=== PATIENT | male | born 1985 | race Caucasian/White ===

== ENCOUNTER 2018-07-18 08:37 | Emergency (ER) | payer OTHER ==
[~2018-07-18] VITALS: Ht 172.7 cm; Wt 68.0 kg
[2018-07-18] MEDS ORDERED: ADDERALL 10 MG10 MG PO (08:48)
[2018-07-18 08:58] LABS: ABSOLUTE NEUTROPHILS 3.8 thou/uL (1.4-8.2); BASOPHILS 0.7 % (0.0-2.0); EOSINOPHILS 3.2 % (0.0-3.0); HEMATOCRIT 45.9 % (42.0-52.0); HEMOGLOBIN 15.6 gm/dL (14.0-18.0); LYMPHOCYTES 37.6 % (24.0-44.0); MCHC 33.9 g/dL (28.0-37.0); MCV 88.6 fL (80.0-100.0); MONOCYTES 9.1 % (1.0-8.0); PLATELET COUNT 279 thou/uL (150-400); POLYS 49.4 % (36.0-66.0); RBC 5.19 mil/uL (4.50-6.00); RDW 13.3 % (10.5-14.5); WBC 7.7 thou/uL (4.0-11.0)
[2018-07-18 09:06] LABS: CALCIUM 9.8 mg/dL (8.5-10.1); CREATININE 0.9 mg/dL (0.7-1.3); POTASSIUM 3.9 mmol/L (3.5-5.1)
[2018-07-18 09:10] LABS: URINE BILIRUBIN NEGATIVE (Negative); URINE BLOOD TRACE (Negative); URINE CLARITY CLEAR; URINE COLOR YELLOW; URINE GLUCOSE-RANDOM* NEGATIVE (Negative); URINE KETONES NEGATIVE (Negative); URINE LEUKOCYTES-REFLEX NEGATIVE (Negative); URINE NITRITE-REFLEX NEGATIVE (Negative); URINE PROTEIN (DIPSTICK) NEGATIVE (Negative); URINE SPECIFIC GRAVITY <= 1.005 (1.005-1.035); URINE UROBILINOGEN 0.2 E.U./dl (0.2-1.0)
[2018-07-18 10:05] LABS: SQUAMOUS None Seen /LPF (0-3)
[2018-07-18 10:45] LABS: CASTS None Seen /LPF (None Seen)
[2018-07-18 10:47] LABS: CALCIUM OXALATE 0-3 Few /LPF (None Seen); URINE WBC-REFLEX 0-5 Rare /HPF (0-5)
[2018-07-18 10:48] LABS: BACTERIA-REFLEX None Seen /HPF (None Seen); URINE RBC 3-10 Few /HPF (0-2)
[2018-07-18] MEDS ORDERED: FLOMAX0.4 MG PO (11:48)
[2018-07-18] MEDS ORDERED: ZOFRAN ODT4 MG PO (11:48)
[2018-07-18] MEDS ORDERED: TORADOL 10 MG T10 MG PO (11:48)
[2018-07-18 12:14] VITALS: BP 125/88
== END 2018-07-18 12:14 | disposition home or self-care (01) ==
LOC: ER 08:37
PROVIDERS: Emergency Medicine
DX: N20.1 Calculus of ureter (principal); Z87.442 Personal history of urinary calculi

== ENCOUNTER 2018-09-29 13:11 | Emergency (ER) | payer OTHER ==
[~2018-09-29] VITALS: Ht 172.7 cm; Wt 68.0 kg
[~2018-09-29 13:11] MED LIST: ADDERALL 10 MG10 MG PO; FLOMAX0.4 MG PO; TORADOL 10 MG T10 MG PO; ZOFRAN ODT4 MG PO
[2018-09-29 13:30] LABS: URINE BILIRUBIN NEGATIVE (Negative); URINE BLOOD NEGATIVE (Negative); URINE CLARITY CLEAR; URINE COLOR YELLOW; URINE GLUCOSE-RANDOM* NEGATIVE (Negative); URINE KETONES NEGATIVE (Negative); URINE LEUKOCYTES-REFLEX NEGATIVE (Negative); URINE NITRITE-REFLEX NEGATIVE (Negative); URINE PROTEIN (DIPSTICK) NEGATIVE (Negative); URINE UROBILINOGEN 0.2 E.U./dl (0.2-1.0)
[2018-09-29 13:34] LABS: ABSOLUTE NEUTROPHILS 6.8 thou/uL (1.4-8.2); BASOPHILS 0.8 % (0.0-2.0); HEMATOCRIT 44.6 % (42.0-52.0); HEMOGLOBIN 15.2 gm/dL (14.0-18.0); MCH 29.8 pg (26.0-34.0); MCV 87.5 fL (80.0-100.0); MONOCYTES 7.7 % (1.0-8.0); POLYS 65.5 % (36.0-66.0); RBC 5.09 mil/uL (4.50-6.00); RDW 13.1 % (10.5-14.5); WBC 11.7 thou/uL (4.0-11.0)
[2018-09-29 13:49] LABS: PLATELET COUNT 265 thou/uL (150-400); PLATELET ESTIMATE NORMAL
[2018-09-29 14:00] LABS: CALCIUM 9.6 mg/dL (8.5-10.1); POTASSIUM 3.8 mmol/L (3.5-5.1)
[2018-09-29] MEDS ORDERED: ZOFRAN ODT4 MG PO (14:16)
[2018-09-29] MEDS ORDERED: NORCO 5-325 TA1 EAC1 PO (14:16)
[2018-09-29] MEDS ORDERED: FLOMAX0.4 MG PO (14:16)
[2018-09-29 14:25] VITALS: BP 124/76
== END 2018-09-29 15:28 | disposition home or self-care (01) ==
LOC: ER 13:11
PROVIDERS: Emergency Medicine; Nurse Practitioner Family
DX: N20.1 Calculus of ureter (principal)